=== PATIENT | male | born 1985 | race Caucasian/White ===

== ENCOUNTER 2025-02-06 20:21 | Emergency (ER) | payer MEDICAID ==
[~2025-02-06] VITALS: Ht 175.3 cm; Wt 72.7 kg
[2025-02-06 20:23] VITALS: TEMP 97.1
--- NOTE | 2025-02-06 20:35 | ELECTROCARDIOGRAPH REPORT ---
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
[2025-02-06 20:49] LABS: MEAN PLATELET VOLUME 7.4 FL (7.4-10.4); RED CELL DISTRIBUTION WIDTH 12.8 % (11.5-14.5)
--- NOTE | 2025-02-06 20:56 | RADIOLOGY REPORT ---
CHEST RADIOGRAPH REASON FOR EXAM: Chest pain COMPARISON: None TECHNIQUE: One view of the chest is provided FINDINGS: The cardiomediastinal silhouette is within normal limits for technique. There is no focal a irspace disease. There is no significant pleural effusion. No acute bony abnormality is identified. IMPRESSION: No radiographic evidence of acute cardiopulmonary process.
[2025-02-06 21:06] LABS: CREATININE 0.83 MG/DL (0.60-1.10); PRO BRAIN NATRIURETIC PEPTIDE 42 PG/ML (0-125); TOTAL CARBON DIOXIDE 28.1 MMOL/L (24-32); eCRCL 119 ML/MIN; eGFR > 90 ML/MIN
[2025-02-06] MEDS ORDERED: NO HOME MEDS (22:25)
--- NOTE | 2025-02-06 22:55 | Physician Documentation ---
History of Present Illness ~ Chief Complaint: Chest Pain Stated Complaint: HEART PALPITIONS Time Seen by MD: 22:25 HPI Patient presents to the emergency room with an unusual feeling in his chest while walking today. History of anxiety. Patient does have hyperlipidemia but does not smoke he had denies history of hypertension or diabetes in his not have a primary relative with heart disease. Patient is established with a doctor in has not appointment this upcoming week. Denies one-sided leg pain currently but does state he has had foot pain previously. No current chest discomfort Medication Reconciliation Allergies: Coded Allergies: Sulfa (Sulfonamide Antibiotics) (Verified Allergy, Unknown, 02/06/25) Miscellaneous Medications Home Med List (No Home Medications), (Reported) Review of Systems ROS All review of systems negative except as per HPI Physical Exam Vital Signs: Temperature: 97.1, Source: Temporal, Heart Rate: 89, Respiratory Rate: 16, BP: 158/105, Pulse Oximetry: 100, Weight: 72.730 Oxygen Flow Rate: 0 Physical Exam General: Patient is awake, alert, oriented x4 in no acute distress and well appearing.~ Head: Normocephalic and atraumatic. Eyes: Conjunctival normal. EOMI. PERRL. ENT: Mucous membranes moist. Neck: Supple, trachea is midline. Chest: Clear to auscultation bilaterally without rales, rhonchi, or wheezes. There is no accessory muscle use or retractions. Cardiac: RRR without murmurs, gallops, or rubs. Abd: Soft, nondistended, nontender, with normoactive bowel sounds. No guarding, rebound, or rigidity. Extremities: Normal strength. Normal range of motion. No deformities or edema. No calf tenderness to palpation Progress Results/Orders Results/Orders Orders - WALTER NARVAEZ MD Chest,Single View (02/06/25 20:29) Monitor (02/06/25 20:29) Saline Lock (02/06/25 20:29) Oxygen (02/06/25 20:29) Hs Troponin I W Calculations (02/06/25 22:29) Hs Troponin I W Calculations (02/06/25 23:29) Completed Orders - WALTER NARVAEZ MD Chest,Single View (02/06/25 20:29) Cbc/Diff (02/06/25 20:29) BMP (02/06/25 20:29) PBNP (02/06/25 20:29) Electrocardiogram (02/06/25 20:29) Hs Troponin I W Calculations (02/06/25 20:29) Vital Signs 02/06/25 20:23 Temp 97.1 Pulse 89 Resp 16 B/P (MAP) 158/105 Pulse Ox 100 O2 Flow Rate 0 Laboratory Tests Test 02/06/25 20:35 02/06/25 22:44 White Blood Count 6.5 Red Blood Count 4.64 L Hemoglobin 14.6 Hematocrit 42.0 Mean Corpuscular Volume 90.5 Mean Corpuscular Hemoglobin 31.4 H Mean Corpuscular Hemoglobin Concent 34.7 Red Cell Distribution Width 12.8 Platelet Count 391 Mean Platelet Volume 7.4 Neutrophils (%) (Auto) 39.4 L Lymphocytes (%) (Auto) 45.4 Monocytes (%) (Auto) 8.4 Eosinophils (%) (Auto) 6.1 H Basophils (%) (Auto) 0.7 Neutrophils # (Auto) 2.6 Lymphocytes # (Auto) 3.0 Monocytes # (Auto) 0.5 Eosinophils # (Auto) 0.4 Basophils # (Auto) 0.0 CBC Comment Sodium Level 138 Potassium Level 4.3 Chloride Level 103 Carbon Dioxide Level 28.1 Anion Gap 7 L Blood Urea Nitrogen 8 Creatinine 0.83 Estimated GFR/1.73 m2 > 90 BUN/Creatinine Ratio 9.6 L Glucose Level 101 Calcium Level 9.1 Troponin I High Sensitivity 4 Pro-B-Type Natriuretic Peptide 42 Albumin 4.3 Chemistry Comments EKG/XRAY/CT/US/VASC/MRI EKG : Additional Comment EKG interpreted by myself shows time of 2031, rate 83, sinus rhythm, normal axis, no ST changes Chest X-Ray : Additional Comments Exam: CHEST,SINGLE VIEW CHEST RADIOGRAPH REASON FOR EXAM: Chest pain COMPARISON: None TECHNIQUE: One view of the chest is provided FINDINGS: The cardiomediastinal silhouette is within normal limits for technique. There is no focal airspace disease. There is no significant pleural effusion. No acute bony abnormality is identified. IMPRESSION: No radiographic evidence of acute cardiopulmonary process. Medical Decision Making Findings Patient presents to the emergency room for evaluation of chest discomfort as per HPI. Differentials include but are not limited to ACS, pulmonary embolism, anxiety, aortic pathology, musculoskeletal pain therefore emergent labs and c hest x-ray ordered which were reassuring. Patient has a heart score of one in his considered low cardiovascular risk. No tenderness to palpation to calf no hypoxia or tachycardia and he had not feel he requires investigation into pulmonary embolism. He has excellent follow up with his primary care provider. ER precautions discussed. Departure Disposition: HOME / SELF CARE / HOMELESS Impression: Primary Impression: Chest pain Condition: Stable Discharge Instructions: Nonspecific Chest Pain, Adult Referrals: NO PRIMARY CARE PROVIDER (PCP) Signature Scribe Signature: No scribe Attestation: The note accurately reflects work and decisions made by me.Walter Narvaez MD 02/06/25 23:08 WALTER NARAVEZ MD Feb 06, 2025 22:55
[2025-02-06 23:00] VITALS: BP 115/65; PULSE 59; RESP 15; O2SAT 99
== END 2025-02-06 23:32 | disposition home or self-care (01) ==
LOC: ER 20:22
DX: R07.89 Other chest pain (principal); E78.5 Hyperlipidemia, unspecified; F41.9 Anxiety disorder, unspecified; Z88.2 Allergy status to sulfonamides
CPT/HCPCS: 36415; 71045; 80048; 83880; 84484; 85025; 93005; 99285